=== PATIENT | male | born 1990 | race Caucasian/White ===

== ENCOUNTER 2017-07-20 15:14 | Emergency (ER) | payer OTHER ==
[2017-07-20] MEDS ORDERED: SODIUM CHLORIDE 0.9% 1,000 ML IV STA (15:43)
--- NOTE | 2017-07-20 15:52 | ED ---
General Adult HPI - General Chief complaint: Chest Pain Stated complaint: Chest Pain Time Seen by Provider: 07/20/17 15:30 Source: patient, RN notes reviewed Mode of arrival: wheelchair Limitations: no limitations - History of Present Illness Initial comments: 26-year-old male presents to the emergency department with a chief complaint of chest and abdomen spasms. Patient states he was recently released from correction and he's been doing mouth and then he started doing heroin. Patient states last time he used heroin was 3 days ago the last time he used meth was last night. Patient states today he just had this chest/abdominal pain is the body will have this discomfort in the local way. Patient states he just does not feel right. Patient denies any nausea vomiting with this and the shortness of breath. Patient denies that he is aware of. Patient states that he is chronically been a meth user heroin is more new to him. Patient denies any recent fever, chills, shortness of breath, back pain, nausea vomiting, numbness or tingling, dysuria or hematuria, constipation or diarrhea, headaches or visual changes, or any other current symptoms. - Related Data Home Medications Medication Instructions Recorded Confirmed No Known Home Medications [No 07/20/17 07/20/17 Known Home Medications] Allergies Allergy/AdvReac Type Severity Reaction Status Date / Time No Known Allergies Allergy Verified 07/20/17 15:34 Review of Systems ROS Statement: Those systems with pertinent positive or pertinent negative responses have been documented in the HPI. ROS Other: All systems not noted in ROS Statement are negative. Past Medical History Additional Past Medical History / Comment(s): CHI History of Any Multi-Drug Resistant Organisms: None Reported Past Surgical History: Orthopedic Surgery Additional Past Surgical History / Comment(s): Left knee sx (MCL), facial sx Past Psychological History: No Psychological Hx Reported Smoking Status: Never smoker Past Alcohol Use History: Daily Past Drug Use History: Heroin, Marijuana, Methamphetamine General Exam - General Exam Comments Initial Comments: General: The patient is awake and alert, in no distress, and does not appear acutely ill. Eye: Pupils are equal, round and reactive to light, extra-ocular movements are intact; there is normal conjunctiva bilaterally. No signs of icterus. Ears, nose, mouth and throat: There are moist mucous membranes and no oral lesions. Neck: The neck is supple, there is no tenderness. Cardiovascular: There is a regular rate and rhythm. No murmur, rub or gallop is appreciated. Respiratory: Lungs are clear to auscultation, respirations are non-labored, breath sounds are equal. No wheezes, stridor, rales, or rhonchi. Gastrointestinal: Soft, non-distended, non-tender abdomen without masses or organomegaly noted. There is no rebound or guarding present. No CVA tenderness. Bowel sounds are unremarkable. Back: There is no tenderness to palpation in the midline. There is no obvious deformity. No rashes noted. Musculoskeletal: Normal ROM, no tenderness, There is no pedal edema. There is no calf tenderness or swelling. Sensation intact. Pulses equal bilaterally 2+. Neurological: CN II-XII intact, There are no obvious motor or sensory deficits. Coordination appears grossly intact. Speech is normal. Skin: Skin is warm and dry and no rashes or lesions are noted. Psychiatric: Cooperative, appropriate mood & affect, normal judgment. Limitations: no limitations Course Vital Signs 07/20/17 15:19 Temperature 98.2 F Pulse Rate 80 Respiratory 20 Rate Blood Pressure 128/77 O2 Sat by Pulse 98 Oximetry EKG Findings - EKG Comments: EKG Findings:: normal sinus rhythm 95 bpm, normal axis, no atopy, no S-T depressions or elevations, Medical Decision Making - Medical Decision Making 26-year-old male presents for chest and abdominal spasms. Patient does appear bizarre in the room. He denies any use of drugs today. At this time patient's liver enzymes are elevated and he has positive for hepatitis C. Patient was informed of this. We did discuss he needs to follow-up with GI and he is given their information. We did discuss the importance of this. We did discuss return parameters all his questions. They stated they understood and they are given plan. They will be discharged home. - Lab Data Result diagrams: 07/20/17 16:11 07/20/17 16:11 Lab Results 07/20/17 07/20/17 07/20/17 Range/Units 16:11 16:11 16:11 WBC 6.2 (3.8-10.6) k/uL RBC 5.21 (4.30-5.90) m/uL Hgb 17.0 (13.0-17.5) gm/dL Hct 49.1 (39.0-53.0) % MCV 94.2 (80.0-100.0) fL MCH 32.6 (25.0-35.0) pg MCHC 34.6 (31.0-37.0) g/dL RDW 13.6 (11.5-15.5) % Plt Count 215 (150-450) k/uL Neutrophils % 75 % Lymphocytes % 13 % Monocytes % 7 % Eosinophils % 2 % Basophils % 1 % Neutrophils # 4.6 (1.3-7.7) k/uL Lymphocytes # 0.8 L (1.0-4.8) k/uL Monocytes # 0.4 (0-1.0) k/uL Eosinophils # 0.1 (0-0.7) k/uL Basophils # 0.1 (0-0.2) k/uL PT (9.0-12.0) sec INR (<1.2) APTT (22.0-30.0) sec Sodium 138 (137-145) mmol/L Potassium 3.7 (3.5-5.1) mmol/L Chloride 102 (98-107) mmol/L Carbon Dioxide 24 (22-30) mmol/L Anion Gap 12 mmol/L BUN 14 (9-20) mg/dL Creatinine 0.85 (0.66-1.25) mg/dL Est GFR (MDRD) Af Amer >60 (>60 ml/min/1.73 sqM) Est GFR (MDRD) Non-Af >60 (>60 ml/min/1.73 sqM) Glucose 165 H (74-99) mg/dL Calcium 9.1 (8.4-10.2) mg/dL Magnesium 1.8 (1.6-2.3) mg/dL Total Bilirubin 3.3 H (0.2-1.3) mg/dL AST 133 H (17-59) U/L ALT 380 H (21-72) U/L Alkaline Phosphatase 69 (38-126) U/L Total Creatine Kinase 86 (55-170) U/L CK-MB (CK-2) 0.7 (0.0-2.4) ng/mL CK-MB (CK-2) Rel Index 0.8 Troponin I <0.012 (0.000-0.034) ng/mL Total Protein 7.1 (6.3-8.2) g/dL Albumin 4.2 (3.5-5.0) g/dL Urine Opiates Screen (NotDetected) Ur Oxycodone Screen (NotDetected) Urine Methadone Screen (NotDetected) Ur Propoxyphene Screen (NotDetected) Ur Barbiturates Screen (NotDetected) U Tricyclic Antidepress (NotDetected) Ur Phencyclidine Scrn (NotDetected) Ur Amphetamines Screen (NotDetected) U Methamphetamines Scrn (NotDetected) U Benzodiazepines Scrn (NotDetected) Urine Cocaine Screen (NotDetected) U Marijuana (THC) Screen (NotDetected) Hepatitis A IgM Ab Hep Bs Antigen Hep B Core IgM Ab Hep C IgG Ab (Negative) 07/20/17 07/20/17 07/20/17 Range/Units 16:11 17:15 17:20 WBC (3.8-10.6) k/uL RBC (4.30-5.90) m/uL Hgb (13.0-17.5) gm/dL Hct (39.0-53.0) % MCV (80.0-100.0) fL MCH (25.0-35.0) pg MCHC (31.0-37.0) g/dL RDW (11.5-15.5) % Plt Count (150-450) k/uL Neutrophils % % Lymphocytes % % Monocytes % % Eosinophils % % Basophils % % Neutrophils # (1.3-7.7) k/uL Lymphocytes # (1.0-4.8) k/uL Monocytes # (0-1.0) k/uL Eosinophils # (0-0.7) k/uL Basophils # (0-0.2) k/uL PT 11.9 (9.0-12.0) sec INR 1.2 H (<1.2) APTT 23.7 (22.0-30.0) sec Sodium (137-145) mmol/L Potassium (3.5-5.1) mmol/L Chloride (98-107) mmol/L Carbon Dioxide (22-30) mmol/L Anion Gap mmol/L BUN (9-20) mg/dL Creatinine (0.66-1.25) mg/dL Est GFR (MDRD) Af Amer (>60 ml/min/1.73 sqM) Est GFR (MDRD) Non-Af (>60 ml/min/1.73 sqM) Glucose (74-99) mg/dL Calcium (8.4-10.2) mg/dL Magnesium (1.6-2.3) mg/dL Total Bilirubin (0.2-1.3) mg/dL AST (17-59) U/L ALT (21-72) U/L Alkaline Phosphatase (38-126) U/L Total Creatine Kinase (55-170) U/L CK-MB (CK-2) (0.0-2.4) ng/mL CK-MB (CK-2) Rel Index Troponin I (0.000-0.034) ng/mL Total Protein (6.3-8.2) g/dL Albumin (3.5-5.0) g/dL Urine Opiates Screen Not Detected (NotDetected) Ur Oxycodone Screen Not Detected (NotDetected) Urine Methadone Screen Not Detected (NotDetected) Ur Propoxyphene Screen Not Detected (NotDetected) Ur Barbiturates Screen Not Detected (NotDetected) U Tricyclic Antidepress Not Detected (NotDetected) Ur Phencyclidine Scrn Not Detected (NotDetected) Ur Amphetamines Screen Detected H (NotDetected) U Methamphetamines Scrn Detected H (NotDetected) U Benzodiazepines Scrn Not Detected (NotDetected) Urine Cocaine Screen Not Detected (NotDetected) U Marijuana (THC) Screen Detected H (NotDetected) Hepatitis A IgM Ab NEGATIVE Hep Bs Antigen Negative Hep B Core IgM Ab NEGATIVE Hep C IgG Ab Reactive (Negative) - Radiology Data Radiology results: report reviewed, image reviewed Disposition Clinical Impression: Hepatitis C antibody positive in blood, Elevated liver enzymes, Drug abuse, Opiate withdrawal Disposition: HOME SELF-CARE Condition: Stable Instructions: Hepatitis C (ED), Polysubstance Abuse (ED) Additional Instructions: Please use medication as discussed. Please follow up with family doctor if symptoms have not improved over the next two days. Please return to the emergency room if your symptoms increase or worsen or for any other concerns. Referrals: Wilmer Moon MD [STAFF PHYSICIAN] - 1-2 days Nasr,Heladio, MD [STAFF PHYSICIAN] - 1-2 days Time of Disposition: 18:38
[2017-07-20 16:26] LABS: Basophils # (A) 0.1 k/uL (0-0.2); Basophils % (A) 1 %; CH 34.2; CHCM 36.5; Eosinophils # (A) 0.1 k/uL (0-0.7); Eosinophils % (A) 2 %; HCT 49.1 % (39.0-53.0); HDW 2.61; Luc # (Auto) 0.14; Luc % (Auto) 2; Lymphocytes # (A) 0.8 k/uL (1.0-4.8); Lymphocytes % (A) 13 %; MCH 32.6 pg (25.0-35.0); MCHC 34.6 g/dL (31.0-37.0); MCV 94.2 fL (80.0-100.0); Mean Platelet Volume 7.3; Monocytes # (A) 0.4 k/uL (0-1.0); Monocytes % (A) 7 %; Neutrophils # (A) 4.6 k/uL (1.3-7.7); Neutrophils % (A) 75 %; RBC 5.21 m/uL (4.30-5.90); RDW 13.6 % (11.5-15.5); WBC 6.2 k/uL (3.8-10.6); WBC (Perox) 6.13
--- NOTE | 2017-07-20 16:30 | XR ---
EXAMINATION TYPE: XR chest 2V DATE OF EXAM: 07/20/2017 COMPARISON: NONE HISTORY: Chest pain and nausea for one day TECHNIQUE: Frontal and lateral views of the chest are obtained. FINDINGS: There is no focal air space opacity, pleural effusion, or pneumothorax seen. The cardiac silhouette size is within normal limits. The osseous structures are intact. IMPRESSION: No acute cardiopulmonary process.
[2017-07-20 16:38] LABS: INR 1.2 (<1.2); Partial Thromboplastin Time 23.7 sec (22.0-30.0); Prothrombin Time 11.9 sec (9.0-12.0)
[2017-07-20 16:39] LABS: ALT 380 U/L (21-72); AST 133 U/L (17-59); Alkaline Phosphatase 69 U/L (38-126); Anion Gap 12 mmol/L; Blood Urea Nitrogen 14 mg/dL (9-20); Calcium 9.1 mg/dL (8.4-10.2); Carbon Dioxide 24 mmol/L (22-30); Chloride 102 mmol/L (98-107); Glucose 165 mg/dL (74-99); Magnesium 1.8 mg/dL (1.6-2.3); Non-African American GFR(MDRD) >60 (>60 ml/min/1.73 sqM); Potassium 3.7 mmol/L (3.5-5.1); Sodium 138 mmol/L (137-145); Total Bilirubin 3.3 mg/dL (0.2-1.3); Total Protein 7.1 g/dL (6.3-8.2)
[2017-07-20 16:45] LABS: Creatine Kinase 86 U/L (55-170)
[2017-07-20 16:58] LABS: Creatine Kinase MB 0.7 ng/mL (0.0-2.4); Troponin I <0.012 ng/mL (0.000-0.034)
[2017-07-20 18:03] LABS: Hepatitis B Surface Ag Index 0.06
[2017-07-20 18:09] LABS: Hepatitis B Core IgM Index 0.04
[2017-07-20 18:20] LABS: Hepatitis C Virus IgG Ab Reactive (Negative)
[2017-07-20 19:14] VITALS: BP 138/68; PULSE 98; RESP 17; TEMP 97.9
== END 2017-07-20 19:14 | disposition home or self-care (01) ==
LOC: EC 15:14
DX: B19.20 Unspecified viral hepatitis C without hepatic coma (principal); F11.23 Opioid dependence with withdrawal; F19.10 Other psychoactive substance abuse, uncomplicated; R74.8 Abnormal levels of other serum enzymes; R07.89 Other chest pain
CPT/HCPCS: 36415; 71020; 80053; 80074; 80306; 82550; 82553; 83735; 84484; 85025; 85610; 85730; 87040; 93005; 96360; 96361; 99285

== ENCOUNTER 2017-12-15 01:03 | Inpatient (IN) | payer OTHER ==
[2017-12-15] MEDS ORDERED: SODIUM CHLORIDE 0.9% 1,000 ML BAG ONE ×2 (03:00→04:00)
[2017-12-15] MEDS ORDERED: KETOROLAC 30 MG/ML 1 ML VIAL ONE (03:00)
[2017-12-15] MEDS ORDERED: ACETAMINOPHEN TAB 500 MG TAB ONE (03:00)
[2017-12-15 05:44] LABS: ALT 77 U/L (21-72); AST 29 U/L (17-59); Alkaline Phosphatase 60 U/L (38-126); Anion Gap 11 mmol/L; Blood Urea Nitrogen 13 mg/dL (9-20); Calcium 9.5 mg/dL (8.4-10.2); Carbon Dioxide 29 mmol/L (22-30); Chloride 98 mmol/L (98-107); Glucose 107 mg/dL (74-99); Potassium 4.1 mmol/L (3.5-5.1); Sodium 138 mmol/L (137-145); Total Bilirubin 1.2 mg/dL (0.2-1.3); Total Protein 7.1 g/dL (6.3-8.2)
[2017-12-15 05:48] LABS: Appearance,Urine Clear (Clear); Bilirubin,Urine Negative (Negative); Blood,Urine Negative (Negative); Color,Urine Yellow; Glucose,Urine (UA) Negative (Negative); Ketones,Urine Negative (Negative); Leukocyte Esterase,Urine Negative (Negative); Nitrite,Urine Negative (Negative); Protein,Urine Negative (Negative); Specific Gravity,Urine 1.013 (1.001-1.035)
[2017-12-15 05:50] LABS: Cocaine Screen,Urine Detected (NotDetected); Opiate Screen,Urine Not Detected (NotDetected); Phencyclidine Screen,Urine Not Detected (NotDetected); Urn Cannabinoid Scrn Detected (NotDetected)
[2017-12-15 05:51] LABS: Amphetamine Screen,Urine Detected (NotDetected); Barbiturate Screen,Urine Not Detected (NotDetected); Benzodiazepines Screen,Urine Not Detected (NotDetected); Methadone Screen, Urine Not Detected (NotDetected); Oxycodone Screen, Urine Not Detected (NotDetected); Tricyclic Antidepressant,Urine Not Detected (NotDetected)
[2017-12-15 06:16] LABS: Basophils # (A) 0.1 k/uL (0-0.2); Basophils % (A) 1 %; Eosinophils # (A) 0.2 k/uL (0-0.7); Eosinophils % (A) 2 %; HCT 46.6 % (39.0-53.0); HGB 16.4 gm/dL (13.0-17.5); Lymphocytes % (A) 17 %; MCH 32.3 pg (25.0-35.0); MCHC 35.1 g/dL (31.0-37.0); Mean Platelet Volume 6.6; Monocytes # (A) 0.8 k/uL (0-1.0); Monocytes % (A) 6 %; Neutrophils # (A) 8.8 k/uL (1.3-7.7); Neutrophils % (A) 74 %; Platelet Count 336 k/uL (150-450); RBC 5.06 m/uL (4.30-5.90); RDW 11.9 % (11.5-15.5)
[2017-12-15] MEDS ORDERED: KETOROLAC 30 MG/ML 1 ML VIAL IVP PRN (06:58)
[2017-12-15] MEDS ORDERED: ONDANSETRON 4 MG/2 ML VIAL IVP PRN (06:58)
[2017-12-15] MEDS ORDERED: ACETAMINOPHEN TAB 325 MG TAB PO PRN (06:58)
[2017-12-15] MEDS ORDERED: NALOXONE 0.4 MG/ML 1 ML VIAL IV PRN (06:58)
[2017-12-15] MEDS ORDERED: SODIUM CHLORIDE 0.9% 1,000 ML IV SCH (07:00)
[2017-12-15] MEDS ORDERED: VANCOMYCIN 1,500 MG in SODIUM CHLORIDE 0.9% 250 ML IVPB ONE (07:00)
[2017-12-15] MEDS ORDERED: VANCOMYCIN IV PER PHARMACY 1 EACH MISC MISCELLANE ONE (07:00)
[2017-12-15] MEDS ORDERED: VANCOMYCIN IV PER PHARMACY 1 EACH MISC MISCELLANE PRN (07:01)
--- NOTE | 2017-12-15 07:16 | P.HPIM ---
History of Present Illness H&P Date: 12/15/17 Chief Complaint: right forearm swelling and pain 27 year old male wi history of IV drug abuse and hepatitis C, presented to the ED due to right forearm swelling and redness. Patient reports regularly getting IV methamphetamine where he shoots himself and he shares needles. However he claims that the last time he used the IV methamphetamine he did not miss the vein and was not painful at that time but later on he noticed some redness and swelling over his right antecubital fossa for which he started taking some leftover amoxicillin that he found to home he took a few doses 3 times a day which per his report resulted in complete resolution of the swelling and redness however since he ran out he notes that the redness has recurred and now is associated with some pain over the past day described as throbbing pain 8 out of 10 in severity with an area of maximum intensity at the site of injection its resulting in some limitations in function of the right forearm due to pain which gets worse with movement and redness area was getting bigger for which she decided to come the hospital seeking further care. He denies any drainage he denies any fevers or chills denies any similar situations in the past denies any chest pain trouble breathing denies any diarrhea or abdominal pain denies any nausea or vomiting. Patient is eager to go home and was requesting to be given some amoxicillin and to be sent home. I explained to the patient that there are some concerns for abscess collection and this needs to be evaluated by surgery this as we were waiting on blood cultures to see if there is any bacteremia and ID the infective orgasm decides he is getting IV vancomycin at this time which could not be given orally. Patient agreed on being admitted. General surgery input still pending. Review of Systems Constitutional: Patient denies fever, denies chills, denies night sweating, denies significant weight changes Eyes: Patient denies visual changes, denies eye pain ENT: Patient denies ear pain, denies rhinorrhea, denies sore throat Cardiovascular: Patient denies chest pain, denies exertional dyspnea, denies peripheral leg edema, denies orthopnea, denies paroxysmal nocturnal dyspnea Respiratory:Patient denies cough, denies wheezing, denies shortness of breath Gastrointestinal: Patient denies diarrhea, denies constipation, denies nausea , denies vomiting, denies abdominal pain Genitourinary: Patient denies dysuria, denies hematuria, denies changes in urinary habits, denies genital lesions Musculoskeletal: Patient denies muscle pain, denies joint pain Psychiatric: Patient denies changes in mood or memory, denies suicidal ideation, denies anxiety Endocrine: Patient denies heat intolerance, denies cold intolerance, denies excessive thirst, denies polyuria Neurological: Patient denies focal neurologic deficits, denies weakness, denies numbness, denies tingling Hem/Lymphatic: Patient denies bleeding tendency, denies bruising, denies swollen lymph glands Allergic/Immun: Patient denies recent allergic reactions Skin: Patient report right forearm rash as per HPI, denies pruritis, denies ulcers Past Medical History Past Medical History: No Reported History Additional Past Medical History / Comment(s): CHI, Hep C, elevated liver enzymes. IV drug use History of Any Multi-Drug Resistant Organisms: None Reported Past Surgical History: Orthopedic Surgery Additional Past Surgical History / Comment(s): Left knee sx (MCL), facial sx Past Psychological History: No Psychological Hx Reported Smoking Status: Never smoker Past Alcohol Use History: Daily Past Drug Use History: Heroin, Marijuana, Methamphetamine - Past Family History Father Family Medical History: Coronary Artery Disease (CAD) Additional Family Medical History / Comment(s): from heart attack at age 42 Medications and Allergies Home Medications Medication Instructions Recorded Confirmed Type No Known Home Medications [No 07/20/17 08/02/17 History Known Home Medications] Allergies Allergy/AdvReac Type Severity Reaction Status Date / Time No Known Allergies Allergy Verified 08/02/17 20:38 Physical Exam Constitutional: No acute distress, conversant, pleasant Eyes: Anicteric sclerae, moist conjunctiva, no lid-lag Pupils equal round reactive to light ENMT: NC/AT Oropharynx clear, no erythema, exudates Neck: Supple, FROM, no masses, or JVD No carotid bruits No thyromegaly Lungs: Clear to auscultation Clear to percussion Normal respiratory effort, no accessory muscle use Cardiovascular: Heart regular in rate and rhythm, No murmurs, gallops, or rubs No peripheral edema Abdominal: Soft Nontender, no guarding, rebound or rigidity Abdomen moving with respiration Normoactive bowel sounds No hepatomegaly, No splenomegaly No palpable mass No abdominal wall hernia noted Skin: There is big area of redness and induration over the right antecubital fossa measuring 25 cm x 10 cm with tenderness to palpation over the antecubital fossa at area of more induration and. some subcutaneous fullness that measures 5 x 5 cm there is no drainage , range of motion is intact over the right forearm, redness and swelling is not circumferential distal pulses are palpable Normal temperature, tone, texture, turgor No subcutaneous nodules No lesions No ulcers Extremities: No digital cyanosis No clubbing Pedal pulses intact and symmetrical Radial pulses intact and symmetrical No calf tenderness Psychiatric: Alert and oriented to person, place and time Appropriate affect fair judgment Neuro Muscles Strength 5/5 in all 4 extremities Sensation to light touch grossly present throughout Cranial nerves II-XII grossly intact No focal sensory deficits Lymphatics: no palpable cervical or supraclavicular , or inguinal lymph nodes Results CBC & Chem 7: 12/15/17 03:00 12/15/17 03:00 Labs: Abnormal Lab Results - Last 24 Hours (Table) 12/15/17 12/15/17 12/15/17 Range/Units 03:00 03:00 04:16 WBC 12.0 H (3.8-10.6) k/uL Neutrophils # 8.8 H (1.3-7.7) k/uL Glucose 107 H (74-99) mg/dL ALT 77 H (21-72) U/L Ur Amphetamines Screen Detected H (NotDetected) U Methamphetamines Scrn Detected H (NotDetected) Urine Cocaine Screen Detected H (NotDetected) U Marijuana (THC) Screen Detected H (NotDetected) Assessment and Plan Assessment: 27-year-old male with history of IV drug abuse presented due to pain and redness over the right antecubital fossa after self injecting with methamphetamine seeking further care. Seems like patient has cellulitis with possible underlying abscess. (1) Cellulitis and abscess of upper arm and forearm Narrative/Plan: Patient started on IV antibiotics with Unasyn and vancomycin Pending general surgery consult to evaluate for possible underlying abscess Pain control Follow-up blood cultures IV fluid hydration Current Visit: Yes Status: Acute Code(s): JRQ7293 - SNOMED Code(s): 692210662 (2) Polysubstance abuse Narrative/Plan: Patient counseled to quit drug abuse Urine was positive for cocaine and methamphetamine and marijuana Current Visit: Yes Status: Acute Code(s): F19.10 - OTHER PSYCHOACTIVE SUBSTANCE ABUSE, UNCOMPLICATED SNOMED Code(s): 806813979 (3) DVT prophylaxis Narrative/Plan: Heparin subcu 3 times a day Current Visit: Yes Status: Chronic Code(s): OSM4001 - SNOMED Code(s): 871039819 (4) Hepatitis C Narrative/Plan: This is chronic since to outpatient follow-up Check AFP Current Visit: Yes Status: Chronic Code(s): B19.20 - UNSPECIFIED VIRAL HEPATITIS C WITHOUT HEPATIC COMA SNOMED Code(s): 74452078 Plan: Preformed a thorough record review from recent hospitalization CODE STATUS:full code DVT prophylaxis: heparin sc Discussed with: Patient, ER, family at bedside Anticipated discharge: [address]: home A total of 40 minutes was spent on the care of this complex patient more than 50 % of the time was spent in counseling and care coordination.
[2017-12-15] MEDS ORDERED: HEPARIN SODIUM,PORCINE 5,000 UNIT/ML 1 ML VIAL SQ SCH (08:00)
[2017-12-15] MEDS ORDERED: VANCOMYCIN 1,750 MG in SODIUM CHLORIDE 0.9% 250 ML IVPB SCH ×2 (08:00→16:00)
[2017-12-15] MEDS ORDERED: AMPICILLIN-SULBACTAM 3 GM in SODIUM CHLORIDE 0.9% 100 ML IVPB SCH (12:00)
== END 2017-12-15 08:29 | disposition left against medical advice (07) | DRG 603 ==
LOC: EC 01:03 → OBSVTOIN 05:14 → INTOOBSV 05:14 → 4MS4W 05:14 → UNDODISOB 08:29
PROVIDERS: ADMIT Internal Medicine; ATTEND Internal Medicine
DX: L02.413 Cutaneous abscess of right upper limb (principal); B18.2 Chronic viral hepatitis C; L03.113 Cellulitis of right upper limb; F12.10 Cannabis abuse, uncomplicated; F14.10 Cocaine abuse, uncomplicated; F15.10 Other stimulant abuse, uncomplicated; Z82.49 Family history of ischemic heart disease and other diseases of the circulatory system
CPT/HCPCS: 36415; 80053; 80306; 81003; 83605; 85025; 87040; 96361; 96365; 96366; 96367; 96375; 99283; 99284

== ENCOUNTER 2018-06-13 04:31 | Emergency (ER) | payer OTHER ==
[2018-06-13 04:48] VITALS: RESP 18
[2018-06-13 05:37] LABS: Amphetamine Screen,Urine Detected (NotDetected); Barbiturate Screen,Urine Not Detected (NotDetected); Benzodiazepines Screen,Urine Not Detected (NotDetected); Cocaine Screen,Urine Not Detected (NotDetected); Methadone Screen, Urine Not Detected (NotDetected); Opiate Screen,Urine Not Detected (NotDetected); Oxycodone Screen, Urine Not Detected (NotDetected); Phencyclidine Screen,Urine Not Detected (NotDetected); Tricyclic Antidepressant,Urine Not Detected (NotDetected); Urn Cannabinoid Scrn Detected (NotDetected)
--- NOTE | 2018-06-13 07:14 | ED ---
Psych HPI - General Chief Complaint: Psychiatric Symptoms Stated Complaint: mental health Time Seen by Provider: 06/13/18 05:30 Source: patient Mode of arrival: ambulatory - History of Present Illness Initial Comments: 27 years old male stated he is now feeling well he is seeing things is quite anxious he just doesn't feel right he admits to smoking some meth. He stated he doesn't know what is going on with him. Denies any headaches no injury no trauma no chest pain or shortness of breath. Does admit to admits to meth and marijuana - Related Data Home Medications Medication Instructions Recorded Confirmed No Known Home Medications 07/20/17 12/15/17 Allergies Allergy/AdvReac Type Severity Reaction Status Date / Time No Known Allergies Allergy Verified 06/13/18 04:48 Review of Systems ROS Statement: Those systems with pertinent positive or pertinent negative responses have been documented in the HPI. ROS Other: All systems not noted in ROS Statement are negative. Past Medical History Past Medical History: No Reported History Additional Past Medical History / Comment(s): CHI, Hep C, elevated liver enzymes. IV drug use History of Any Multi-Drug Resistant Organisms: None Reported Past Surgical History: Orthopedic Surgery Additional Past Surgical History / Comment(s): Left knee sx (MCL), facial sx Past Psychological History: No Psychological Hx Reported Smoking Status: Never smoker Past Alcohol Use History: Daily Past Drug Use History: Heroin, Marijuana, Methamphetamine - Past Family History Father Family Medical History: Coronary Artery Disease (CAD) Additional Family Medical History / Comment(s): from heart attack at age 42 General Exam - General Exam Comments Initial Comments: General: The patient is awake and alert, in no distress, and does not appear acutely ill. Skin: Skin is warm and dry and no rashes or lesions are noted. Eye: Pupils are equal, round and reactive to light, extra-ocular movements are intact; there is normal conjunctiva bilaterally. Ears, nose, mouth and throat: There are moist mucous membranes and no oral lesions. Neck: The neck is supple, there is no tenderness or JVD. Cardiovascular: There is a regular rate and rhythm. No murmur, rub or gallop is appreciated. Notice mild tachycardia Respiratory: To auscultation bilateral, no wheezing no rhonchi no distress respiratory ledesma noticed Gastrointestinal: Soft, non-distended, non-tender abdomen without masses or organomegaly noted. There is no rebound or guarding present. Bowel sounds are unremarkable. Back: There is no tenderness to palpation in the midline. There is no obvious deformity. Musculoskeletal: Normal ROM, no tenderness, There is no pedal edema. There is no calf tenderness or swelling. No cords were appreciated. Neurological: CN II-XII intact, Cranial nerves III through XII are intact. There are no obvious motor or sensory deficits. Coordination appears grossly intact. Speech is normal. Psychiatric: Cooperative, quite anxious him a restless but denies any suicidal or homicidal ideation Limitations: no limitations Course Vital Signs 06/13/18 04:44 Temperature 98.2 F Pulse Rate 107 H Respiratory 18 Rate Blood Pressure 128/81 O2 Sat by Pulse 98 Oximetry Urinalysis revealed amphetamine and methamphetamine and marijuana. Was evaluated by [facility] the referred him to addiction services in they're comfortable sending him home, will discharge home and he is stable on his feet, endorsed to Dr. Nielson at 7:15 AM Medical Decision Making - Lab Data Lab Results 06/13/18 Range/Units 05:13 Urine Opiates Screen Not Detected (NotDetected) Ur Oxycodone Screen Not Detected (NotDetected) Urine Methadone Screen Not Detected (NotDetected) Ur Propoxyphene Screen Not Detected (NotDetected) Ur Barbiturates Screen Not Detected (NotDetected) U Tricyclic Antidepress Not Detected (NotDetected) Ur Phencyclidine Scrn Not Detected (NotDetected) Ur Amphetamines Screen Detected H (NotDetected) U Methamphetamines Scrn Detected H (NotDetected) U Benzodiazepines Scrn Not Detected (NotDetected) Urine Cocaine Screen Not Detected (NotDetected) U Marijuana (THC) Screen Detected H (NotDetected) Disposition Clinical Impression: Polysubstance abuse Referrals: None,Stated [Primary Care Provider] - 1-2 days
[2018-06-13 07:39] VITALS: BP 138/72; PULSE 87; TEMP 98
== END 2018-06-13 08:05 ==
LOC: EC 04:31
DX: F12.10 Cannabis abuse, uncomplicated (principal); F15.10 Other stimulant abuse, uncomplicated; F41.9 Anxiety disorder, unspecified
CPT/HCPCS: 80306; 82075; 99284

== ENCOUNTER 2018-06-13 14:47 | Emergency (ER) | payer OTHER ==
--- NOTE | 2018-06-13 15:54 | ED ---
Psych HPI - General Chief Complaint: Psychiatric Symptoms Stated Complaint: Mental Health Time Seen by Provider: 06/13/18 15:04 Source: patient, EMS, RN notes reviewed Mode of arrival: ambulatory - History of Present Illness Initial Comments: This is a 27-year-old male who presents to the emergency department for mental health evaluation. Patient was discharged earlier this morning. He was noted to be anxious and tested positive for methamphetamines. He was discharged home. Patient was brought to the emergency department via EMS. Patient states that he has been having suicidal ideation without plans. Denies homicidal ideation. He is admitting to having visual hallucinations. States that he does drink and do illicit drugs occasionally, but not today. He denies any medical issues and states he takes no medications. Denies any allergies to medications. Denies recent illnesses or infections. Denies fevers or chills, chest pain or shortness of breath, abdominal pain, nausea or vomiting. Patient states that he feels or something wrong with him and doesn't know what is going on. - Related Data Home Medications Medication Instructions Recorded Confirmed No Known Home Medications 07/20/17 06/13/18 Allergies Allergy/AdvReac Type Severity Reaction Status Date / Time No Known Allergies Allergy Verified 06/13/18 15:04 Review of Systems ROS Statement: Those systems with pertinent positive or pertinent negative responses have been documented in the HPI. ROS Other: All systems not noted in ROS Statement are negative. Past Medical History Past Medical History: No Reported History Additional Past Medical History / Comment(s): CHI, Hep C, elevated liver enzymes. IV drug use History of Any Multi-Drug Resistant Organisms: None Reported Past Surgical History: Orthopedic Surgery Additional Past Surgical History / Comment(s): Left knee sx (MCL), facial sx Past Psychological History: No Psychological Hx Reported Smoking Status: Never smoker Past Alcohol Use History: Daily Past Drug Use History: Heroin, Marijuana, Methamphetamine - Past Family History Father Family Medical History: Coronary Artery Disease (CAD) Additional Family Medical History / Comment(s): from heart attack at age 42 General Exam - General Exam Comments Initial Comments: General: Awake and alert, well-developed; in no apparent distress. Patient is drowsy. HEENT: Head atraumatic, normocephalic. Pupils are equal, round and reactive to light. Extraocular movements intact. Oropharynx moist without erythema or exudate. Neck: Supple. Normal ROM. Cardiovascular: Regular rate and rhythm. No murmurs, rubs or gallops. Chest symmetrical. Respiratory: Lungs clear to auscultation bilaterally. No wheezes, rales or rhonchi. Normal respiratory effort with no use of accessory muscles. Abdomen: Soft, non-tender, non-distended. No rigidity, rebound or guarding. Normal bowel sounds in all 4 quadrants. Musculoskeletal: Normal ROM, no tenderness bilateral upper and lower extremities. Ambulating normally. Skin: [place], warm and dry without rashes or lesions. Neurological: Alert and oriented x3. CN II-XII grossly intact. Speech is fluent. Some of the patient's statements do not make sense. Pressured speech. No focal neuro deficits. Limitations: no limitations Course Vital Signs 06/13/18 06/13/18 06/14/18 15:00 23:25 03:28 Temperature 98.1 F 97.8 F 97.2 F L Pulse Rate 72 71 82 Respiratory 16 14 14 Rate Blood Pressure 133/71 100/53 112/57 O2 Sat by Pulse 98 99 99 Oximetry 06/14/18 09:19 Temperature 98.1 F Pulse Rate 98 Respiratory 18 Rate Blood Pressure 109/67 O2 Sat by Pulse 100 Oximetry - Reevaluation(s) Reevaluation #1: At this time, patient evaluated by EPS nurse. She states the patient is arousable but is not making sense. She states that she cannot evaluate him at this time. 06/13/18 17:30 Medical Decision Making - Medical Decision Making This is a 27-year-old male who presents to the emergency department for mental health evaluation. Patient reported suicidal ideation. Found to be positive for amphetamines, methamphetamines and marijuana. Evaluated by EPS who recommended inpatient treatment. Patient transferred to [facility]. - Lab Data Result diagrams: 06/14/18 03:43 06/14/18 04:38 Lab Results 06/14/18 06/14/18 06/14/18 Range/Units 03:43 03:45 04:38 WBC 4.0 (3.8-10.6) k/uL RBC 4.66 (4.30-5.90) m/uL Hgb 14.7 (13.0-17.5) gm/dL Hct 42.2 (39.0-53.0) % MCV 90.5 (80.0-100.0) fL MCH 31.5 (25.0-35.0) pg MCHC 34.9 (31.0-37.0) g/dL RDW 12.3 (11.5-15.5) % Plt Count 209 (150-450) k/uL Neutrophils % 49 % Lymphocytes % 33 % Monocytes % 7 % Eosinophils % 7 % Basophils % 1 % Neutrophils # 2.0 (1.3-7.7) k/uL Lymphocytes # 1.3 (1.0-4.8) k/uL Monocytes # 0.3 (0-1.0) k/uL Eosinophils # 0.3 (0-0.7) k/uL Basophils # 0.0 (0-0.2) k/uL Sodium 138 (137-145) mmol/L Potassium 3.2 L (3.5-5.1) mmol/L Chloride 103 (98-107) mmol/L Carbon Dioxide 27 (22-30) mmol/L Anion Gap 8 mmol/L BUN 13 (9-20) mg/dL Creatinine 0.76 (0.66-1.25) mg/dL Est GFR (CKD-EPI)AfAm >90 (>60 ml/min/1.73 sqM) Est GFR (CKD-EPI)NonAf >90 (>60 ml/min/1.73 sqM) Glucose 99 (74-99) mg/dL Calcium 8.4 (8.4-10.2) mg/dL Total Bilirubin 2.0 H (0.2-1.3) mg/dL AST 117 H (17-59) U/L ALT 181 H (21-72) U/L Alkaline Phosphatase 45 (38-126) U/L Total Protein 6.1 L (6.3-8.2) g/dL Albumin 3.6 (3.5-5.0) g/dL Urine Color Yellow Urine Appearance Clear (Clear) Urine pH 6.0 (5.0-8.0) Ur Specific [place] 1.024 (1.001-1.035) Urine Protein Trace H (Negative) Urine Glucose (UA) Negative (Negative) Urine Ketones 1+ H (Negative) Urine Blood Negative (Negative) Urine Nitrite Negative (Negative) Urine Bilirubin Negative (Negative) Urine Urobilinogen 4.0 (<2.0) mg/dL Ur Leukocyte Esterase Negative (Negative) Urine Opiates Screen Not Detected (NotDetected) Ur Oxycodone Screen Not Detected (NotDetected) Urine Methadone Screen Not Detected (NotDetected) Ur Propoxyphene Screen Not Detected (NotDetected) Ur Barbiturates Screen Not Detected (NotDetected) U Tricyclic Antidepress Not Detected (NotDetected) Ur Phencyclidine Scrn Not Detected (NotDetected) Ur Amphetamines Screen Detected H (NotDetected) U Methamphetamines Scrn Detected H (NotDetected) U Benzodiazepines Scrn Not Detected (NotDetected) Urine Cocaine Screen Not Detected (NotDetected) U Marijuana (THC) Screen Detected H (NotDetected) Disposition Clinical Impression: Suicidal ideation Disposition: TRANSFER TO PSYCH HOSP/UNIT Condition: Fair Is patient prescribed a controlled substance at d/c from ED?: No Referrals: None,Stated [Primary Care Provider] - 1-2 days - Out of Hospital Transfer - Req. Specs Out of Hospital Transfer - Requested Specifics: Psychiatric Non-ICU ([facility])
[2018-06-14 03:52] LABS: Basophils % (A) 1 %; Eosinophils # (A) 0.3 k/uL (0-0.7); Eosinophils % (A) 7 %; HCT 42.2 % (39.0-53.0); HGB 14.7 gm/dL (13.0-17.5); Lymphocytes # (A) 1.3 k/uL (1.0-4.8); Lymphocytes % (A) 33 %; MCH 31.5 pg (25.0-35.0); MCHC 34.9 g/dL (31.0-37.0); MCV 90.5 fL (80.0-100.0); Mean Platelet Volume 7.1; Monocytes # (A) 0.3 k/uL (0-1.0); Monocytes % (A) 7 %; Neutrophils % (A) 49 %; Platelet Count 209 k/uL (150-450); RBC 4.66 m/uL (4.30-5.90); RDW 12.3 % (11.5-15.5)
[2018-06-14 04:13] LABS: Appearance,Urine Clear (Clear); Bilirubin,Urine Negative (Negative); Blood,Urine Negative (Negative); Color,Urine Yellow; Glucose,Urine (UA) Negative (Negative); Ketones,Urine 1+ (Negative); Leukocyte Esterase,Urine Negative (Negative); Nitrite,Urine Negative (Negative); Protein,Urine Trace (Negative); Specific Gravity,Urine 1.024 (1.001-1.035)
[2018-06-14 04:25] LABS: Amphetamine Screen,Urine Detected (NotDetected); Barbiturate Screen,Urine Not Detected (NotDetected); Benzodiazepines Screen,Urine Not Detected (NotDetected); Cocaine Screen,Urine Not Detected (NotDetected); Methadone Screen, Urine Not Detected (NotDetected); Opiate Screen,Urine Not Detected (NotDetected); Oxycodone Screen, Urine Not Detected (NotDetected); Phencyclidine Screen,Urine Not Detected (NotDetected); Tricyclic Antidepressant,Urine Not Detected (NotDetected); Urn Cannabinoid Scrn Detected (NotDetected)
[2018-06-14 04:58] LABS: ALT 181 U/L (21-72); AST 117 U/L (17-59); Albumin 3.6 g/dL (3.5-5.0); Alkaline Phosphatase 45 U/L (38-126); Anion Gap 8 mmol/L; Blood Urea Nitrogen 13 mg/dL (9-20); Calcium 8.4 mg/dL (8.4-10.2); Carbon Dioxide 27 mmol/L (22-30); Chloride 103 mmol/L (98-107); Glucose 99 mg/dL (74-99); Potassium 3.2 mmol/L (3.5-5.1); Sodium 138 mmol/L (137-145); Total Protein 6.1 g/dL (6.3-8.2)
[2018-06-14] MEDS ORDERED: POTASSIUM CHLORIDE ER 20 MEQ TAB.ER PO STA (06:27)
[2018-06-14 09:20] VITALS: BP 109/67; PULSE 98; RESP 18; TEMP 98.1
== END 2018-06-14 09:23 ==
LOC: EC 14:47
DX: R45.851 Suicidal ideations (principal); R44.1 Visual hallucinations; F19.10 Other psychoactive substance abuse, uncomplicated
CPT/HCPCS: 36415; 80053; 80306; 81003; 82075; 85025; 99284; 99285

== ENCOUNTER 2018-07-08 16:51 | Emergency (ER) | payer OTHER ==
[2018-07-08 17:17] VITALS: RESP 18
--- NOTE | 2018-07-08 19:16 | ED ---
General Adult HPI - General Chief complaint: Skin/Abscess/Foreign Body Stated complaint: Abscess on head Time Seen by Provider: 07/08/18 18:03 Source: patient, RN notes reviewed Mode of arrival: ambulatory Limitations: no limitations - History of Present Illness Initial comments: 27-year-old male presents to the emergency department for a chief complaint of abscess 3 days. Patient states it has begun to hurt and he wanted to get it looked at. Patient denies fevers or chills at home. Patient denies any drainage from the abscess. Patient denies any spreading or streaking redness. Patient denies any history of MRSA. Patient has never had an abscess like this before. Patient does not have any ALLERGIES to antibiotics.Patient has no other complaints at this time including shortness of breath, chest pain, abdominal pain, nausea or vomiting, headache, or visual changes. - Related Data Previous Rx's Medication Instructions Recorded Sulfamethox-Tmp 800-160Mg [Bactrim 2 tab PO Q12HR 10 Days tab 07/08/18 DS 800-160 mg] Allergies Allergy/AdvReac Type Severity Reaction Status Date / Time No Known Allergies Allergy Verified 07/08/18 18:20 Review of Systems ROS Statement: Those systems with pertinent positive or pertinent negative responses have been documented in the HPI. ROS Other: All systems not noted in ROS Statement are negative. Past Medical History Past Medical History: No Reported History Additional Past Medical History / Comment(s): CHI, Hep C, elevated liver enzymes. IV drug use History of Any Multi-Drug Resistant Organisms: None Reported Past Surgical History: Orthopedic Surgery Additional Past Surgical History / Comment(s): Left knee sx (MCL), facial sx Past Psychological History: No Psychological Hx Reported Smoking Status: Never smoker Past Alcohol Use History: Daily Past Drug Use History: Heroin, Marijuana, Methamphetamine - Past Family History Father Family Medical History: Coronary Artery Disease (CAD) Additional Family Medical History / Comment(s): from heart attack at age 42 General Exam Limitations: no limitations General appearance: alert Head exam: Present: atraumatic, normocephalic, normal inspection Eye exam: Present: normal appearance, PERRL, EOMI. Absent: scleral icterus, conjunctival injection, periorbital swelling ENT exam: Present: normal exam, mucous membranes moist Neck exam: Present: normal inspection, full ROM. Absent: tenderness, meningismus, lymphadenopathy Respiratory exam: Present: normal lung sounds bilaterally. Absent: respiratory distress, wheezes, rales, rhonchi, stridor Cardiovascular Exam: Present: regular rate, normal rhythm, normal heart sounds. Absent: systolic murmur, diastolic murmur, rubs, gallop, clicks Neurological exam: Present: alert, oriented X3, CN II-XII intact Psychiatric exam: Present: normal affect, normal mood Skin exam: Present: other (abscess 1.5 cm x 1.5 cm noted on forehead midline 2 cm superior to eyebrows. No spreading redness or streaking redness. No drainage from the abscess at this time. No cellulitic changes) Course Vital Signs 07/08/18 17:14 Temperature 98.1 F Pulse Rate 93 Respiratory 18 Rate Blood Pressure 124/80 O2 Sat by Pulse 98 Oximetry Procedures - Incision & Drainage Consent Obtained: verbal consent Site: face (forehead midline) Anesthetic Used: lidocaine 1% I&D Cleaning Method: Chloroprep, Betadine Scalpel Used: #11 Needle Aspiration Performed?: No Irrigation Performed?: Yes I&D Drainage Obtained: Pus (significant), Blood Patient Tolerated Procedure: well, no complications Medical Decision Making - Medical Decision Making 27-year-old male presents to the emergency department for a chief complaint of abscess 3 days. No history of MRSA. No fevers or chills at home. No spreading redness or streaking redness. No concern for cellulitic changes. Patient does have an abscess 1.5 cm x 1.5 cm on the midline of the forehead just above the eyebrows. This was successfully I and D. Patient will be treated with Bactrim. He was educated to come back if he notices any worsening symptoms such as spreading redness streaking redness or fever. If abscess continues to increase in size he will come back. Patient is aware he needs to do this. He will follow-up with dermatology in 1-2 days otherwise. Disposition Clinical Impression: Abscess Disposition: HOME SELF-CARE Condition: Good Instructions: Abscess Incision and Drainage (ED), Warm Compress or Soak (ED) Additional Instructions: Please take antibiotics as directed. Use warm compresses every couple hours or so to draw out infection. Please follow-up with dermatology in 1-2 days. Return to the emergency department if you have any worsening symptoms such as the abscess increases in size, spreading redness, streaking redness, or fevers. Prescriptions: Sulfamethox-Tmp 800-160Mg [Bactrim DS 800-160 mg] 2 tab PO Q12HR 10 Days tab Is patient prescribed a controlled substance at d/c from ED?: No Referrals: Donn Robledo MD [STAFF PHYSICIAN] - 1-2 days Vlad Quiroz MD [STAFF PHYSICIAN] - 1-2 days Time of Disposition: 19:12
[2018-07-08 19:29] VITALS: BP 128/82; PULSE 95; TEMP 98
== END 2018-07-08 19:29 | disposition home or self-care (01) ==
LOC: EC 16:51
DX: L02.811 Cutaneous abscess of head [any part, except face] (principal); Z86.19 Personal history of other infectious and parasitic diseases
CPT/HCPCS: 10060; 99282

== ENCOUNTER 2018-07-25 11:36 | Emergency (ER) | payer OTHER ==
[2018-07-25 11:57] VITALS: BP 146/99; PULSE 77; RESP 18; TEMP 98.4
[2018-07-25] MEDS ORDERED: SULFAMETH-TMP DS STARTER PACK 2 TAB BTL PO STA (12:15)
--- NOTE | 2018-07-25 12:15 | ED ---
General Adult HPI - General Chief complaint: Skin/Abscess/Foreign Body Stated complaint: Abscess on arm from needle Time Seen by Provider: 07/25/18 12:00 Source: patient, RN notes reviewed Mode of arrival: ambulatory Limitations: no limitations - History of Present Illness Initial comments: 28-year-old male presents emergency department with a chief complaint of concern for abscess to left forearm and concern for a left finger nail infection. He states it's been going on for about 2 days. He states he's had some pus from the fingernail. Denies any pus from the arm. He states he hasn' t had any fever chills. He denies any cough cold runny nose like symptoms. He was concerned due to the pain and the need for antibiotics so he thought that he should be evaluated. No other symptoms. Patient denies any recent fever, chills, shortness of breath, chest pain, back pain, abdominal pain, nausea vomiting, numbness or tingling, dysuria or hematuria, constipation or diarrhea, headaches or visual changes, or any other current symptoms. - Related Data Previous Rx's Medication Instructions Recorded Sulfamethox-Tmp 800-160Mg [Bactrim 2 tab PO Q12HR 10 Days tab 07/08/18 DS 800-160 mg] Sulfamethox-Tmp 800-160Mg [Bactrim 2 each PO Q12HR #56 tab 07/25/18 DS 800-160 mg] Allergies Allergy/AdvReac Type Severity Reaction Status Date / Time No Known Allergies Allergy Verified 07/25/18 11:57 Review of Systems ROS Statement: Those systems with pertinent positive or pertinent negative responses have been documented in the HPI. ROS Other: All systems not noted in ROS Statement are negative. Past Medical History Past Medical History: No Reported History Additional Past Medical History / Comment(s): CHI, Hep C, elevated liver enzymes. IV drug use History of Any Multi-Drug Resistant Organisms: None Reported Past Surgical History: Orthopedic Surgery Additional Past Surgical History / Comment(s): Left knee sx (MCL), facial sx Past Psychological History: No Psychological Hx Reported Smoking Status: Never smoker Past Alcohol Use History: Daily Past Drug Use History: Heroin, Marijuana, Methamphetamine - Past Family History Father Family Medical History: Coronary Artery Disease (CAD) Additional Family Medical History / Comment(s): from heart attack at age 42 General Exam Limitations: no limitations General appearance: alert, in no apparent distress Respiratory exam: Present: normal lung sounds bilaterally. Absent: respiratory distress, wheezes, rales, rhonchi, stridor Cardiovascular Exam: Present: regular rate, normal rhythm, normal heart sounds. Absent: systolic murmur, diastolic murmur, rubs, gallop, clicks Neurological exam: Present: alert, oriented X3 Psychiatric exam: Present: normal affect, normal mood Skin exam: Present: warm, dry, other (Patient does appear to have more redness to the left forearm. Patient does appear to have apparent edema to the left pinky finger.) Course Vital Signs 07/25/18 11:54 Temperature 98.4 F Pulse Rate 77 Respiratory 18 Rate Blood Pressure 146/99 O2 Sat by Pulse 97 Oximetry Medical Decision Making - Medical Decision Making 28-year-old male presents for what appears to be a paronchia that is actively drainage as well as concern for possibly start an abscess to the left forearm. We will start patient on Bactrim. We did discuss follow-up we did discuss return parameters all questions. The patient stated that he understood and he is agreement this plan. All questions have been answered. He will be discharged. Disposition Clinical Impression: Abscess of left forearm, Paronychia of left little finger Disposition: HOME SELF-CARE Condition: Stable Instructions: Abscess (ED), Paronychia (ED) Additional Instructions: Please use medication as discussed. Please follow up with family doctor if symptoms have not improved over the next two days. Please return to the emergency room if your symptoms increase or worsen or for any other concerns. Prescriptions: Sulfamethox-Tmp 800-160Mg [Bactrim DS 800-160 mg] 2 each PO Q12HR #56 tab Is patient prescribed a controlled substance at d/c from ED?: No Referrals: None,Stated [Primary Care Provider] - 1-2 days Time of Disposition: 12:15
== END 2018-07-25 12:55 | disposition home or self-care (01) ==
LOC: EC 11:36
DX: L02.414 Cutaneous abscess of left upper limb (principal); L03.012 Cellulitis of left finger
CPT/HCPCS: 99283